=== PATIENT | male | born 1980 | race Caucasian/White ===

== ENCOUNTER → 2017-05-31 | Outpatient (CLI) | payer BC ==
--- NOTE | 2017-05-31 10:54 | RAD ---
INDICATION: Increased liver function tests. COMPARISON: None. TECHNIQUE: Grayscale and color ultrasound images obtained through the abdomen. FINDINGS: Aorta/IVC: Only partially seen secondary to overlying bowel gas Pancreas: Only small portion seen. Liver: Liver is echogenic. Large portions the liver not well seen on this exam secondary to poor beam penetration. Gallbladder: No definite stones or wall thickening. Common Bile Duct: Not dilated. Right Kidney: No hydronephrosis. Left Kidney: No hydronephrosis. Spleen: 14.4 cm IMPRESSION: Liver is echogenic. Nonspecific but can be seen with fatty infiltration. No definite common bile duct dilation. Spleen is enlarged.
== END | disposition home or self-care (01) ==
LOC: US 07:35
PROVIDERS: ATTEND Family Medicine
DX: K76.0 Fatty (change of) liver, not elsewhere classified (principal); R16.1 Splenomegaly, not elsewhere classified; R94.5 Abnormal results of liver function studies
CPT/HCPCS: 76700